=== PATIENT | male | born 1970 | race Caucasian/White ===

== ENCOUNTER 2016-09-11 18:22 | Emergency (ER) | payer MEDICARE, MEDICAID ==
[2016-09-11 19:26] LABS: HEMOGLOBIN 9.9 gm/dL (13.2-17.3); MEAN CELL VOLUME 77.5 fl (80-99); MEAN CORPUSCULAR HEMOGLOBIN 25.4 pg (26.0-30.0); MEAN CORPUSCULAR HGB CONC 32.9 pg (28.0-36.0); MEAN PLATELET VOLUME 8.7 fl; RED BLOOD COUNT 3.91 Mil/cmm (4.30-5.70); RED CELL DISTRIBUTION WIDTH 22.1 % (11.5-20.0)
--- NOTE | 2016-09-11 19:43 | ED Physician Chart ---
Chief Complaint/HPI - Patient Information Date Seen:: 09/11/16 Time Seen:: 18:40 Chief Complaint:: ABDOMINAL PAIN History of Present Illness:: THIS IS A 46 YO MALE WITH MULTIPLE VISITS TO THIS ER FOR TREATMENT OF HIS ABDOMINAL PAIN. HE IS A FREQUENT FLYER AT MANY OTHER ERS. HIS PMD IS AWARE OF HIS ALLERGIES TO ALMOST ALL PAIN MEDS AND HIS COMPLIANT OF PANCREATIC DISEASE. HE DENIES VOMITING AND IS ABLE TO EAT. HE IS ALSO CONCERNED ABOUT HIS DIABETES BUT HAS NOT BEEN COMPLIANT. Allergies:: Allergies Allergy/AdvReac Type Severity Reaction Status Date / Time baclofen Allergy Verified 08/29/15 19:40 gabapentin Allergy Verified 08/29/15 19:44 hydroxyzine Allergy Verified 08/29/15 19:44 ketorolac Allergy Verified 08/29/15 19:44 lorazepam Allergy Verified 08/29/15 19:44 Penicillins Allergy Verified 08/29/15 19:44 quetiapine Allergy Verified 08/29/15 19:44 MINTAZAPINE Allergy Uncoded 08/29/15 19:44 Vitals:: Vital Signs - 8 hr 09/11/16 18:31 Temp 99.7 F HR 88 RR 16 BP 105/60 O2 Sat % 97 Review of Systems - Review of Systems General/Constitutional: No fever, No chills, Weight loss, No weakness, No diaphoresis, No edema, No loss of appetite Skin: No skin lesions, No rash, No bruising Head: No headache, No light-headedness Eyes: No loss of vision, No pain, No diplopia ENT: No earache, No nasal drainage, No sore throat, No tinnitus Neck: No neck pain, No swelling, No thyromegaly, No stiffness, No mass noted Cardio Vascular: No chest pain, No palpitations, No PND, No orthopnea, No edema Pulmonary: No SOB, No cough, No sputum, No wheezing GI: No nausea, No vomiting, No diarrhea, Pain, No melena, No hematochezia, No constipation, No hematemesis G/U: No dysuria, No frequency, No hematuria Musculoskeletal: No bone or joint pain, No back pain, No muscle pain Endocrine: No polyuria, No polydipsia Psychiatric: Prior psych history, No depression, Anxiety, No suicidal ideation Hematopoietic: No bruising, No lymphadenopathy Allergic/Immuno: No urticaria, No angioedema Neurological: No syncope, No focal symptoms, No weakness, No paresthesia, No headache, No seizure, No dizziness, No confusion, No vertigo Past Medical History - Past Medical History Obtainable: Yes Past Medical History: HTN, DM, Dyslipidemia, PUD/GERD, Other (PANCREATITIS, ) Family History: None Social History: Non Smoker, No Alcohol, No Drug Use Surgical History: other (BOWEL OBSTRUCTION SURGERY) Psychiatricy History: Schizophrenia, Bipolar Medication: Reviewed Family Medical History - Family Member Mother History Unknown: Yes Ethnicity: Non- Living Status: Still Living Hx Family Cancer: Yes Hx Family Coronary Artery Disease: No Hx Family Congestive Heart Failure: No Hx Family Hypertension: No Hx Family Stroke: No Hx Family Diabetes: Yes Hx Family Seizures: No Hx Family Dementia: No Hx Family AIDS: No Hx Family HIV: No Hx Family COPD: No Hx Family Hepatitis: No Hx Family Psychiatric Problems: No Hx Family Tuberculosis: No Grandmother History Unknown: Yes Physical Exam - Physical Examination General/Constitutional: Awake, Well-developed, well-nourished, Alert, No distress, GCS 15, Non-toxic appearing, Ambulatory Head: Atraumatic Eyes: Lids, conjuctiva normal, PERRL, EOMI Skin: Nl inspection, No rash, No skin lesions, No ecchymosis, Well hydrated, No lymphadenopathy ENMT: External ears, nose nl, Nasal exam nl, Lips, teeth, gums nl Neck: Nontender, Full ROM w/o pain, No JVD, No nuchal rigidity, No bruit, No mass, No stridor Respiratory: Nl effort/Exclusion, Clear to Auscultation, No Wheeze/Rhonchi/Rales Cardio Vascular: RRR, No murmur, gallop, rubs, NL S1 S2 GI: No tenderness/rebounding/guarding, No organomegaly, No hernia, Normal BS's, Nondistended, No mass/bruits, No McBurney tenderness : No CVA tenderness Extremities: No tenderness or effusion, Full ROM, normal strength in all extremities, Normal digits & nails Other Extremities comments:: EDEMA OF THE LOWER EXTREMITIES Neuro/Psych: Alert/oriented, DTR's symmetric, Normal sensory exam, Normal motor strength, Judgement/insight normal, Mood normal, Normal gait, No focal deficits Misc: normal gait, Normal back, No paraspinal tenderness Labs/Radiology/EKG Results - Lab Results Results: Laboratory Tests 09/11/16 18:39 POC Glucose 485 H* Assessment - Assessment General Assessment: RECURRENT PANCREATIC PAIN AND DIABETES MELLITUS ED Septic Shock - . Is Septic Shock (SBP<90, OR Lactate>4 mmol\L) present?: No - <6hrs of presentation: Vital Signs: Vital Signs - 8 hr 09/11/16 18:31 Temp 99.7 F HR 88 RR 16 BP 105/60 O2 Sat % 97 Reassessment (Disposition) - Reassessment Reassessment Condition:: Improved - Diagnosis Diagnosis:: DIABETES MELLITUS UNCONTROLLED RECURRENT ABDOMINAL PAIN - Aftercare/Follow up Instructions Aftercare/Follow-Up Instructions:: Counseled pt regarding lab results/diagnosis & need follow up, Refer to Discharge Instructions, Counseled pt & family regarding lab results/diagnosis & need follow up Medication Prescribed:: I SPOKE TO HIS DOCTOR WHO INFORMED ME OF HIS CONDITION AND WHAT TO EXPECT. HIS PMD ASKED ME TO HYDRATE HIM AND TREAT HIS PAIN AND DIABETES THEN SEND HIM HOME. - Patient Disposition Discharge/Transfer:: Home Condition at Disposition:: Improved ED Discharge Plan - Patient Disposition Admit/Discharge/Transfer: PT DISCHARGED HOME Condition at Disposition: Improved
[2016-09-11 19:45] LABS: ALB/GLOB RATIO 1.4 (1.0-1.8); ALKALINE PHOSPHATASE 76 U/L (34-104); ANION GAP 17.6 (7.0-16.0); BILIRUBIN,TOTAL 0.3 mg/dL (0.3-1.0); BUN - UREA NITROGEN 12 mg/dL (7-25); BUN/CREATININE RATIO 17.1; CALCIUM SERUM 9.4 mg/dL (8.6-10.3); CARBON DIOXIDE 22.5 mEq/L (21.0-31.0); CHLORIDE 98 mEq/L (98-107); CHOLESTEROL 149 mg/dL (<200); CREATININE - SERUM 0.7 mg/dL (0.7-1.3); POTASSIUM SERUM 4.1 mEq/L (3.5-5.1); SGOT 9 U/L (13-39); SGPT/ALT 13 U/L (7-52); SODIUM SERUM 134 mEq/L (136-145); TRIGLYCERIDES 475 mg/dL (<150)
[2016-09-11 19:47] LABS: WHITE BLOOD COUNT 3.5 Th/cmm (4.8-10.8)
[2016-09-11 19:48] LABS: HEMATOCRIT 30.3 % (39.0-49.0); PLATELET COUNT 94 Th/cmm (150-400)
[2016-09-11] MEDS ORDERED: INSULIN HUMAN REGULAR 100 UNITS/ML UNIT SUBQ ONE ×2 (19:48→21:39)
[2016-09-11 19:49] LABS: GLUCOSE 558 mg/dL (70-105)
[2016-09-11] MEDS ORDERED: Haloperidol Lactate 5 mg/mL 1mL Vial IM PRN (19:49)
[2016-09-11 19:54] LABS: INR 0.95 (0.5-1.4); PROTHROMBIN TIME (TEST) 9.9 SECONDS (9.5-11.5)
[2016-09-11] MEDS ORDERED: INSULIN HUMAN REGULAR 100 UNITS/ML UNIT ONE ×2 (19:58→21:50)
[2016-09-11 20:09] LABS: BAND NEUTROPHILE 2 % (0-10); NEUTROPHILS 63 % (40-80); TOTAL CELLS COUNTED 100
[2016-09-11] MEDS ORDERED: Haloperidol Lactate 5 mg/mL 1mL Vial ONE (20:09)
[2016-09-11 20:10] LABS: ANISOCYTOSIS 1+; MICROCYTOSIS 1+; PLATELET ESTIMATE DECREASED PLATELETS (NORMAL); PLATELET MORPHOLOGY NORMAL (NORMAL); POLYCHROMASIA 1+
[2016-09-11] MEDS ORDERED: Sodium Chloride 0.9% 1,000 ML IV ONE (22:12)
--- NOTE | 2016-09-12 09:47 | Diagnostic Imaging Report ---
Portable chest x-ray History: Shortness of breath Allowing for portable technique the heart size is normal. No focal pulmonary parenchymal processes. No hilar or mediastinal abnormalities. Degenerative changes seen in the spine. Impression: No acute abnormalities.
== END 2016-09-11 23:59 | disposition home or self-care (01) ==
LOC: ER 18:22
DX: E11.9 Type 2 diabetes mellitus without complications (principal); R10.9 Unspecified abdominal pain; I10 Essential (primary) hypertension; E78.5 Hyperlipidemia, unspecified; F20.9 Schizophrenia, unspecified; Z88.0 Allergy status to penicillin; Z88.8 Allergy status to other drugs, medicaments and biological substances
CPT/HCPCS: 36415-UA; 71010-TC; 80053-TC; 80061-TC; 82150-TC; 82948-90; 83036-90; 83605; 83690-TC; 84443-TC; 84484-TC; 85007-TC; 85027-TC; 85610-TC; 85730-TC; 86592-TC; J1200; J1630; J1815; J7030